=== PATIENT | female | born 1970 | race African-American/Black ===

== ENCOUNTER → 2020-05-17 | Outpatient (CLI) | payer BC, OTHER ==
[~2020-05-17] MED LIST: ALLERCLEAR10 MG PO
== END ==
LOC: RAD 12:24
PROVIDERS: ATTEND Nurse Practitioner
DX: M77.31 Calcaneal spur, right foot (principal); M76.891 Other specified enthesopathies of right lower limb, excluding foot; M79.671 Pain in right foot

== ENCOUNTER → 2021-09-22 | Outpatient (CLI) | payer BC, OTHER | END | disposition home or self-care (01) | LOC: RAD 12:41 | PROVIDERS: ATTEND Nurse Practitioner | DX: M47.816 Spondylosis without myelopathy or radiculopathy, lumbar region (principal); M43.8X6 Other specified deforming dorsopathies, lumbar region; M54.40 Lumbago with sciatica, unspecified side ==